=== PATIENT | male | born 1980 | race African-American/Black ===

== ENCOUNTER 2022-07-07 11:52 | Emergency (ER) | payer BC, OTHER ==
--- OUTSIDE RECORDS SUMMARY | 2022-07-07 11:55 | XMS REPORT | Continuity of Care Document ---
:1980 Author Organization [facility] t Address [address] [place] [address] Dr. [address]. [address] [place] [address] Care Team Providers Name Role Phone FILIPE DANIELLE Primary Care Physician Unavailable L_Adam Attending Clinician Unavailable Angela Medina Attending Clinician [phone] ARAM Attending Clinician Unavailable AYDE Attending Clinician Unavailable Silvina [place] Attending Clinician [phone] Paulina Sarmiento Attending Clinician PAULINA PAULSON Attending Clinician Unavailable L_Adam Admitting Clinician Unavailable ARAM Admitting Clinician Unavailable AYDE Admitting Clinician Unavailable Payers Payer Name Policy Type Policy Number Effective Date Expiration Date Jaquelin barnes [place] [id number] 2018 00:00:00 [place] Problems Condition Condition Condition Status Onset Resolution Last Treating Co mments Source Name Details Category Date Date Treatment Clinician Date Polyuria Polyuria Problem Active [facility] 07[facility] Abnormal Abnormal Problem Active [place] glucose Glucose 07-02 Communi level Level 00:00: Hospita l Clinics Essential Essential Problem Active [place] hypertensi Hypertensi 03-09 Co mmuni on on 00:00: ty [facility]osp[facility] Blood Blood Problem Active [place] glucose Glucose 03-06 Communi abnormal Abnormal 00:00: Hospita l Clinics Elevated Elevated Problem Active [place] fasting Fasting 03-06 Communi lipid Lipid 00:00: ty profile Profile 00 [facility] Sleep Sleep Problem Active [place] pattern Pattern 03-06 Communi disturbanc Disturbanc 00:00: ty e e 00 [facility] No known No known Disease Unive rs active active ity of problems problems [facility] Allergies, Adverse Reactions, Alerts Allergy Allergy Status Severity Reaction(s) Onset Inactive Treating Comm ents Source Name Type Date Date Clinician NO KNOWN Drug Active Univers ALLERGIE Class ity of S [facility] Social History Social Habit Start Date Stop Date Quantity Comments Source Exposure to Not sure [facility] SARS-CoV-2 [facility] [place] (event) Branch Alcohol intake 2021-10-25 2021-10-25 Current [facility] 00:00:00 00:00:00 non-drinker of [facility] alcohol [place] (finding) Tobacco use and 2018-10-13 2018-10-13 Never used Universit y of exposure 00:00:00 00:00:00 [facility] Sex Assigned At [birth year] Universit y of 00:00:00 00:00:00 [facility] Smoking Status Start Date Stop Date Source Never smoker [facility] Medications Ordered Filled Start Stop Current Ordering Indication Dosage Frequency Signature Comments Components Source Medication Medication Date Date Medication? Clinician (SIG) Name Name lisinopriL- Yes [id number] 1{tbl} Take 1 Univers hydrochloro 1-20 tablet by ity of thiazide 00:00: mouth [place] 20-12.5 mg 00 daily. Medical per tablet Branch amoxicillin 2021- No [id number] 500mg Take 1 Univers 500 mg 1-20 11-05 capsule by ity of capsule 00:00: 05:59 mouth 2 [place] 00 :00 (two) Medical times Branch daily for 10 days. lisinopril- Yes lisinopril Univers hydrochloro 1-08 20 ity of thiazide 14:26: mg-hydroch Nasir as 20-12.5 mg 15 lorothiazi Med ical per tablet de 12.5 mg Bra nch tablet Take 1 tablet every day by oral route. amitriptyli Yes amitriptyl Univers ne 25 mg 1-08 ine 25 mg ity of tablet 14:26: tablet [place] 15 Take 1 Medical tablet Branch every day by oral route as directed for 30 days. amLODIPine 2019-0 Yes 10mg Take 1 Unive rs 10 mg 1-08 tablet by ity of tablet 00:00: mouth [place] 00 daily. Medical Branch amitriptyli amitriptyli No amitriptyl [place] ne 25 mg ne 25 mg ine 25 mg Co mmuni tablet TAKE tablet TAKE tablet ty 1 TABLET BY 1 TABLET BY TAKE 1 Hospita MOUTH ONCE MOUTH ONCE TABLET BY l DAILY DAILY MOUTH ONCE C linics DIRECTED DIRECTED DAILY DIRECTED amlodipine amlodipine No 1 Q1D amlodipine [place] 10 mg 10 mg 10 mg Communi tablet Take tablet Take tablet ty 1 tablet 1 tablet Take 1 Hospi ta every day every day tablet l by oral by oral every day Clin ics route in route in by oral the evening the evening route in for 90 for 90 the days. days. evening for 90 days. lisinopril lisinopril No 1 Q1D lisinopril [place] 10 mg 10 mg 10 mg Communi tablet Take tablet Take tablet ty 1 tablet 1 tablet Take 1 Hospi ta every day every day tablet l by oral by oral every day Clin ics route. route. by oral route. amitriptyli amitriptyli No amitriptyl [place] ne 25 mg ne 25 mg ine 25 mg Co mmuni tablet TAKE tablet TAKE tablet ty 1 TABLET BY 1 TABLET BY TAKE 1 Hospita MOUTH ONCE MOUTH ONCE TABLET BY l DAILY DAILY MOUTH ONCE C linics DIRECTED DIRECTED DAILY DIRECTED amlodipine amlodipine No 1 Q1D amlodipine [place] 10 mg 10 mg 10 mg Communi tablet Take tablet Take tablet ty 1 tablet 1 tablet Take 1 Hospi ta every day every day tablet l by oral by oral every day Clin ics route in route in by oral the evening the evening route in for 90 for 90 the days. days. evening for 90 days. lisinopril lisinopril No 1 Q1D lisinopril [place] 10 mg 10 mg 10 mg Communi tablet Take tablet Take tablet ty 1 tablet 1 tablet Take 1 Hospi ta every day every day tablet l by oral by oral every day Clin ics route. route. by oral route. Vital Signs Vital Name Observation Time Observation Value Comments Source BP Diastolic 2022-07-02 00:00:00 113 mm[Hg] Nai Molina [facility] s Height 2022-07-02 00:00:00 74 [in_i] [facility] s BMI (Body Mass 2022-07-02 00:00:00 27.5 kg/m2 [facility] Index) [facility] s BP Systolic 2022-07-02 00:00:00 193 mm[Hg] [facility] s Body Weight 2022-07-02 00:00:00 3420.8 [oz_av] [facility] s Systolic blood 2021-10-26 01:56:00 200 mm[Hg] Univer sity [facility] Diastolic blood 2021-10-26 01:56:00 100 mm[Hg] [facility] rate 2021-10-26 01:56:00 103 /min [facility] Body temperature 2021-10-26 01:53:00 37.44 Marcy [facility] Respiratory rate 2021-10-26 01:53:00 18 /min [facility] Body height 2021-10-26 01:53:00 188 cm [facility] Body weight 2021-10-26 01:53:00 113.399 kg [facility] BMI 2021-10-26 01:53:00 32.10 kg/m2 [facility] Oxygen saturation in 2021-10-26 01:53:00 98 /min [facility] blood by [facility] Pulse oximetry Branch Procedures Procedure Date / Time Performed Performing Clinician Sourc e POCT MOLECULAR STREP 2021-10-26 01:51:00 Paulina Paulson [facility] Plan of Care Planned Activity Planned Date Details Comments Source Diagnostic Test 2022-07-02 urinalysis, [place] [facility] Pending 00:00:00 dipstick [code = [facility] urinalysis, dipstick] Diagnostic Test 2022-07-02 glucose, [place] [facility] Pending 00:00:00 fingerstick, blood [facility] [code = glucose, fingerstick, blood] Diagnostic Test 2022-07-02 HbA1c (hemoglobin [facility] Pending 00:00:00 A1c), blood [code Hospital linics = HbA1c (hemoglobin A1c), blood] Instructions [place] [facility] s Encounters Start End Encounter Admission Attending Care Care Encounter Source Date/Time Date/Time Type Type Clinicians Facility Department ID 2022-07-02 2022-07-02 Outpatient L_Adam [facility] [id number] [place] 00:00:00 00:00:00 927 Commun i ty [facility] 2022-07-02 2022-07-02 [facility] [place] [facility] [place] 00:00:00 00:00:00 Abel Medina APRN, MSN, [facility] ty [facility]: [address], CL[address], [place] [address] , Ph. 2022-05-08 2022-05-08 Outpatient L_Adam [facility] [id number] [place] 00:00:00 00:00:00 803 Commun i ty Hospita [facility] Clinics 2022-05-08 2022-05-08 Outpatient Angela Medina [facility] [id number] 00:00:00 00:00:00 [id number] 2022-05-06 2022-05-06 Outpatient L_Adam [facility] [id number] 220 [place] 00:00:00 00:00:00 801 Commun i ty Hospita [facility] Clinics 2022-04-19 2022-04-19 Outpatient L_Adam [facility] [id number] 220 [place] 10:22:00 10:22:00 715 Commun i ty Hospita l Clinics 2022-04-10 2022-04-10 Outpatient CHRETIEN_F [facility] [id number] [place] 12:34:00 12:34:00 706 Commun i ty Hospita [facility] Clinics 2022-04-10 2022-04-10 Outpatient Angela Medina [facility] [id number] 00:00:00 00:00:00 [id number] [facility] 2022-04-03 2022-04-03 Outpatient CHRETIEN_F [facility] [id number] [place] 03:24:00 03:24:00 629 Commun i ty Hospita [facility] Clinics 2022-04-01 2022-04-01 Outpatient SHASHI [facility] [id number] [place] 01:57:00 01:57:00 _L 627 Commun i ty Hospita [facility] Clinics 2022-04-01 2022-04-01 Outpatient Ofelia [facility] [id number] 00:00:00 00:00:00 Silvina [id number] 2022-04-01 2022-04-01 Outpatient Ofelia [facility] [id number] 00:00:00 00:00:00 Silvina [id number] 2021-10-25 2021-10-25 Urgent [facility] [id number] Univers 20:00:00 20:20:00 [facility] [id number] it y [facility] [id number] Nasir as SHANTELL?BLEA [id number] [address] MEDICAL OFFICE BUILDING 2021-10-25 2021-10-25 [facility] [id number] Univers 20:00:00 20:17:33 [facility] 2021-10-25 2021-10-25 Outpatient R [facility] [id number] Univers 20:00:00 20:00:00 [id number] [facility] 2020-06-07 2020-06-07 Outpatient SHASHI [facility] [id number] [place] 04:34:00 04:34:00 _L 623 Commun ty Hospita l Clinics Results Test Description Test Time Test Comments Results Result Comments Source Glucose [Mass/volume] in Capillary blood 2022-07-02 08:22:00 Test Item Value Reference Range Interpretation Comme nts Blood Glucose: mg/dl (test code = Blood Glucose: mg/dl) 600+ [facility] - Urine 2022-07-02 08:21:00 Test Item Value Reference Range Interpretation Comments Leukocytes (test code = Negative Leukocytes) Nitrite (test code = Nitrite) negative Urobilinogen (test code = .2 Urobilinogen) Protein (test code = Protein) Trace pH (test code = pH) 5.0 Blood (test code = Blood) Large Specific [place] (test code = 1.005 Specific [place]) Ketone (test code = Ketone) Large (160) Bilirubin (test code = Bilirubin) Negative Glucose (test code = Glucose) 2000+ Appearance (test code = Clear Appearance) Color (test code = Color) Pale Yellow [facility] [id number] 01:58:49 Test Item Value Reference Range Interpretation Comments POCT Molecular Strep (test code = Negative Negative 33655-9) Lab Interpretation (test code = Normal 30241-3) [facility]
[2022-07-07 12:43] LABS: Urine Blood Negative (Negative); Urine Glucose 3+ (Negative); Urine Protein Negative (Negative); Urine Specific Gravity <=1.005 (1.005-1.030); Urine pH 5.5 (5.0-7.0)
[2022-07-07] MEDS ORDERED: NA CHLORIDE 0.9% 1,000 ML ONE ×2 (12:44→15:40)
[2022-07-07] MEDS ORDERED: INSULIN -REGULAR HUMAN 50 UNIT/0.5 ML ML ONE (12:44)
[2022-07-07 12:54] LABS: Hematocrit 45.9 % (39.6-49.0); Lymphocytes % 37.9 % (15.3-44.8); MCV 81.8 fL (80-100); MPV 11.1 fL (7.6-11.3); RBC Red Blood Cell Count 5.61 M/uL (4.33-5.43)
[2022-07-07 13:14] LABS: Albumin 3.7 g/dL (3.4-5.0); Bilirubin Total 0.6 mg/dL (0.2-1.0); Protein, Total 7.3 g/dL (6.4-8.2)
[2022-07-07 14:28] LABS: Blood Gas Oxyhemoglobin 95.7 % (94-97)
[2022-07-07 17:28] LABS: Blood Morphology Comment NOT SEEN (NOT SEEN); Platelet Estimate ADEQ; White Blood Cell Scan OK (OK)
[2022-07-07 18:17] LABS: Potassium 4.2 mmol/L (3.5-5.1)
--- NOTE | 2022-07-07 18:33 | EDPHYS ---
Physician Documentation [facility] Name: Spencer Murray Age: 42 yrs Sex: Male : 1980 Arrival Date: 07/07/2022 Time: 11:57 Bed 18 Private MD: ED Physician Jose J Mello HPI: 07/07 18:31 This is a 42-year-old male with history of diabetes mellitus and hypertension the jmm presents emerged part with elevated blood glucose. Patient was seen at [place] [facility] and prescribed glipizide, metformin, and insulin. Patient did not fill his insulin prescription. Patient states having increased urination. Denies shortness of breath.. Historical: - Allergies: 12:24 No Known Allergies; vg1 - Home Meds: 12:24 lisinopril 20 mg Oral tab 1 tab once daily for Hypertension [Active]; amlodipine oral vg1 [Active]; Metformin Oral [Active]; Glipizide Oral [Active]; - PMHx: 12:24 Hypertension; Diabetes mellitus; vg1 - PSHx: 12:24 None; vg1 - Immunization history:: Client reports having NOT received the Covid vaccine. - Social history:: Smoking status: Patient denies any tobacco usage or history of. ROS: 18:31 Constitutional: Negative for fever, chills, and weight loss, Cardiovascular: Negative jmm for chest pain, palpitations, and edema, Respiratory: Negative for shortness of breath, cough, wheezing, and pleuritic chest pain. Exam: 18:32 Constitutional: This is a well developed, well nourished patient who is awake, alert, jmm and in no acute distress. Head/Face: atraumatic. Eyes: EOMI, no conjunctival erythema appreciated ENT: Moist Mucus Membranes Neck: Trachea midline, Supple Chest/axilla: Normal chest wall appearance and motion. Cardiovascular: Regular rate and rhythm. No edema appreciated Respiratory: Normal respirations, no respiratory distress appreciated Abdomen/GI: Non distended Back: Normal ROM Skin: General appearance color normal MS/ Extremity: Moves all extremities, no obvious deformities appreciated, no edema noted to the lower extremities Neuro: Awake and alert Psych: Behavior is normal, Mood is normal, Patient is cooperative and pleasant Vital Signs: 12:21 BP 143 / 94; Pulse 107; Resp 17; Temp 98.6(TE); Pulse Ox 96% on R/A; Weight 97.52 kg; vg1 Height 6 ft. 2 in. (187.96 cm); Pain 0/10; 12:55 BP 127 / 70; Pulse 112; Resp 18; Pulse Ox 95% ; eh3 14:00 BP 130 / 76; Pulse 88; Resp 14; Pulse Ox 94% on R/A; eh3 15:00 BP 116 / 73; Pulse 80; Resp 18; Pulse Ox 100% on R/A; eh3 16:00 BP 140 / 92; Pulse 91; Resp 17; Pulse Ox 95% on R/A; eh3 17:00 BP 140 / 83; Pulse 75; Resp 13; Pulse Ox 98% on R/A; eh3 18:00 BP 149 / 91; Pulse 80; Resp 16; Pulse Ox 97% on R/A; eh3 12:21 Body Mass Index 27.60 (97.52 kg, 187.96 cm) vg1 MDM: 12:33 Patient medically screened. [facility] 18:32 Data reviewed: vital signs, nurses notes. Counseling: I had a detailed discussion with abril the patient and/or guardian regarding: the historical points, exam findings, and any diagnostic results supporting the discharge/admit diagnosis, lab results, the need for outpatient follow up, to return to the emergency department if symptoms worsen or persist or if there are any questions or concerns that arise at home. Refusal of service: The patient/guardian displays adequate decision making capability and despite a detailed discussion of alternatives, benefits, risks, and consequences refuses: Admission to the hospital for further work-up and treatment. 07/07 12:32 Order name: Glucose, Ancillary Testing; Complete Time: 12:33 EDCT 07/07 12:36 Order name: CBC with Diff [facility] 07/07 12:36 Order name: CMP [facility] 07/07 12:36 Order name: Lipase [facility] 07/07 12:43 Order name: Urine Dipstick-Ancillary; Complete Time: 12:43 EDCT 07/07 12:56 Order name: CBC with Automated Diff; Complete Time: 17:34 EDCT 07/07 13:16 Order name: Comprehensive Metabolic Panel; Complete Time: 13:22 EDCT 07/07 13:16 Order name: Lipase; Complete Time: 13:22 EDCT 07/07 13:42 Order name: ABG [facility] 07/07 15:36 Order name: ABG Arterial Blood Gas; Complete Time: 15:41 EDMS 07/07 16:07 Order name: BMP: repeat after IVF [facility] 07/07 16:51 Order name: Glucose, Ancillary Testing; Complete Time: 16:58 EDMS 07/07 17:28 Order name: CBC Smear Scan; Complete [facility]: 17:34 [facility] 12:36 Order name: IV Saline Lock; Complete Time: 12:59 [facility] 07/07 12:36 Order name: Labs collected and sent; Complete Time: 12:59 [facility] 07/07 12:36 Order name: Urine Dipstick-Ancillary (obtain specimen); Complete Time: 12:55 [facility] 07/07 18:17 Order name: Basic Metabolic Panel; Complete Time: 18:19 EDMS Administered Medications: 12:55 Drug: Insulin Regular Human 10 units {Co-Signature: ld1 (Deann Jean RN).} Route: eh3 IVP; Site: left antecubital; 16:48 Follow up: Response: Blood sugar is lowered [facility] 12:59 Drug: NS 0.9% 1000 ml Route: IV; Rate: 1 bolus; Site: left antecubital; eh3 14:00 Follow up: IV Status: Completed infusion; IV Intake: 1000ml eh3 15:47 Drug: NS 0.9% 1000 ml Route: IV; Rate: 1 bolus; Site: left antecubital; eh3 18:00 Follow up: IV Status: Completed infusion; IV Intake: 1000ml eh3 Disposition Summary: 07/07/22 18:33 Discharge Ordered Location: Home [facility] Condition: Stable [facility] Diagnosis - Hyperglycemia, unspecified [facility] Followup: [facility] - With: Private Physician - When: 2 - 3 days - Reason: Recheck today's complaints, Continuance of care, Re-evaluation by your physician Discharge Instructions: - Discharge Summary Sheet [facility] - Hyperglycemia [facility] Forms: - Medication Reconciliation Form [facility] - Thank You Letter [facility] - Antibiotic Education [facility] - Prescription Opioid Use [facility] Prescriptions: - Levemir FlexTouch U-100 Insuln 100 unit/mL (3 mL) Subcutaneous insulin pen - inject 10 unit by SUBCUTANEOUS route once daily; 1 Device; Refills: 0, Product [facility] Selection Permitted Signatures: Dispatcher [employer] EDMS Jose J Mello MD MD cha Mickail, Joel, PA PA jmm Garcia, Victoria, RN RN vg1 Sandra Torres, TACHO RN eh3 Deann Jean RN ld1 Corrections: (The following items were deleted from the chart) 15:44 15:27 BASIC METABOLIC PANEL+[id number].LAB.BRZ ordered. EDMS EDMS
--- NOTE | 2022-07-07 18:33 | ER ---
Nurse's Notes [facility] Name: Spencer Murray Age: 42 yrs Sex: Male : 1980 Arrival Date: 07/07/2022 Time: 11:57 Bed 18 Private MD: Diagnosis: Hyperglycemia, unspecified Presentation: 07/07 12:21 Chief complaint: Patient states: BG at home was 555; triage stated 'HI'; pt stated when vg1 to [place] ED Friday07/02/22 and was prescribed Metformin and Glipizide for new onset of DM; denies NV or headache; states "I feel weak". Coronavirus screen: Vaccine status: Patient reports being unvaccinated. Client denies travel out of the [place] in the last 14 days. Ebola Screen: Patient negative for fever greater than or equal to 101.5 degrees Fahrenheit, and additional compatible Ebola Virus Disease symptoms Patient denies exposure to infectious person. Patient denies travel to an Ebola-affected area in the 21 days before illness onset. Initial Sepsis Screen: Does the patient meet any 2 criteria? No. Patient's initial sepsis screen is negative. Does the patient have a suspected source of infection? No. Patient's initial sepsis screen is negative. Risk Assessment: Do you want to hurt yourself or someone else? Patient reports no desire to harm self or others. Onset of symptoms was July 07, 2022. 12:21 Method Of Arrival: Ambulatory vg1 12:21 Acuity: JEROME 3 vg1 Triage Assessment: 12:24 General: Appears in no apparent distress. uncomfortable, Behavior is cooperative. Pain: vg1 Denies pain. Neuro: Level of Consciousness is awake, alert, obeys commands, Oriented to person, place, time, situation. Cardiovascular: Patient's skin is warm and dry. Respiratory: Airway is patent Respiratory effort is even, unlabored. Historical: - Allergies: 12:24 No Known Allergies; vg1 - Home Meds: 12:24 lisinopril 20 mg Oral tab 1 tab once daily for Hypertension [Active]; amlodipine oral vg1 [Active]; Metformin Oral [Active]; Glipizide Oral [Active]; - PMHx: 12:24 Hypertension; Diabetes mellitus; vg1 - PSHx: 12:24 None; vg1 - Immunization history:: Client reports having NOT received the Covid vaccine. - Social history:: Smoking status: Patient denies any tobacco usage or history of. Screenin:55 Abuse screen: Denies threats or abuse. Denies injuries from another. Nutritional eh3 screening: No deficits noted. Tuberculosis screening: No symptoms or risk factors identified. Fall Risk None identified. Assessment: 12:55 General: Appears in no apparent distress. comfortable, Behavior is calm, cooperative, eh3 appropriate for age. Pain: Denies pain. Neuro: Level of Consciousness is awake, alert, obeys commands, Oriented to person, place, time, situation. Cardiovascular: Capillary refill < 3 seconds Patient's skin is warm and dry. Respiratory: Airway is patent Respiratory effort is even, unlabored. GI: Abdomen is round non-distended. :. 14:00 Reassessment: Patient and/or family updated on plan of care and expected duration. Pain eh3 level reassessed. Patient is alert, oriented x 3, equal unlabored respirations, skin warm/dry/pink. 15:00 Reassessment: Patient and/or family updated on plan of care and expected duration. Pain eh3 level reassessed. Patient is alert, oriented x 3, equal unlabored respirations, skin warm/dry/pink. 16:00 Reassessment: Patient and/or family updated on plan of care and expected duration. Pain eh3 level reassessed. Patient is alert, oriented x 3, equal unlabored respirations, skin warm/dry/pink. 17:00 Reassessment: Patient and/or family updated on plan of care and expected duration. Pain eh3 level reassessed. Patient is alert, oriented x 3, equal unlabored respirations, skin warm/dry/pink. 18:00 Reassessment: Patient and/or family updated on plan of care and expected duration. Pain eh3 level reassessed. Patient is alert, oriented x 3, equal unlabored respirations, skin warm/dry/pink. Vital Signs: 12:21 BP 143 / 94; Pulse 107; Resp 17; Temp 98.6(TE); Pulse Ox 96% on R/A; Weight 97.52 kg; vg1 Height 6 ft. 2 in. (187.96 cm); Pain 0/10; 12:55 BP 127 / 70; Pulse 112; Resp 18; Pulse Ox 95% ; eh3 14:00 BP 130 / 76; Pulse 88; Resp 14; Pulse Ox 94% on R/A; eh3 15:00 BP 116 / 73; Pulse 80; Resp 18; Pulse Ox 100% on R/A; eh3 16:00 BP 140 / 92; Pulse 91; Resp 17; Pulse Ox 95% on R/A; eh3 17:00 BP 140 / 83; Pulse 75; Resp 13; Pulse Ox 98% on R/A; eh3 18:00 BP 149 / 91; Pulse 80; Resp 16; Pulse Ox 97% on R/A; eh3 12:21 Body Mass Index 27.60 (97.52 kg, 187.96 cm) vg1 ED Course: 11:57 Patient arrived in ED. am2 12:18 Prasad Swanson PA is PHCP. [facility] 12:18 Jose J Mello MD is Attending Physician. [facility] 12:24 Triage completed. vg1 12:24 Arm band placed on. vg1 12:35 Sandra Torres, TACHO is Primary Nurse. eh3 12:55 Patient has correct armband on for positive identification. Placed in gown. Bed in low eh3 position. Call light in reach. Side rails up X2. Client placed on continuous cardiac and pulse oximetry monitoring. NIBP monitoring applied. traffic monitor specialist on. Door closed. Noise minimized. Lights dimmed. Warm blanket given. 12:55 Inserted saline lock: 20 gauge in left antecubital area, using aseptic technique. Blood eh3 collected. 12:59 CBC with Diff Sent. eh3 12:59 CMP Sent. eh3 12:59 Lipase Sent. eh3 18:36 No provider procedures requiring assistance completed. eh3 18:52 IV discontinued, intact, bleeding controlled, No redness/swelling at site. Pressure eh3 dressing applied. Administered Medications: 12:55 Drug: Insulin Regular Human 10 units {Co-Signature: ld1 (Deann Jean RN).} Route: eh3 IVP; Site: left antecubital; 16:48 Follow up: Response: Blood sugar is lowered eh3 12:59 Drug: NS 0.9% 1000 ml Route: IV; Rate: 1 bolus; Site: left antecubital; eh3 14:00 Follow up: IV Status: Completed infusion; IV Intake: 1000ml eh3 15:47 Drug: NS 0.9% 1000 ml Route: IV; Rate: 1 bolus; Site: left antecubital; 3 18:00 Follow up: IV Status: Completed infusion; IV Intake: 1000ml 3 Medication: 12:55 VIS not applicable for this client. eh3 Intake: 14:00 IV: 1000ml; Total: 1000ml. eh3 18:00 IV: 1000ml; Total: 2000ml. eh3 Output: 18:34 Urine: 1000ml (Voided); Total: 1000ml. 3 Outcome: 18:33 Discharge ordered by . [facility] 18:51 Discharged to home ambulatory, with family. 3 18:51 Condition: stable 18:51 Discharge instructions given to patient, significant other, Instructed on discharge instructions, follow up and referral plans. medication usage, Demonstrated understanding of instructions, follow-up care, medications, Prescriptions given X 1. 18:52 Patient left the ED. 3 Signatures: Prasad Swanson PA PA jmm Moreno, Amanda am2 Theresa Powell RN RN 1 Sandra Torres RN RN 3 Deann Jean RN ld1 Corrections: (The following items were deleted from the chart) 12:26 12:21 Chief complaint: Patient states: BG at home was 555; triage stated 'HI'; pt vg1 stated when to [place] ED Friday07/02/22 and was prescribed Metformin and Glipizide; denies NV or headache; states "I feel weak" vg1 12:59 12:55 Pulse 112bpm; Resp 18bpm; Pulse Ox 95%; 3 3 16:48 15:36 BP 116 / 73; Pulse 80bpm; Resp 18bpm; Pulse Ox 100% RA; 3 eh3
[2022-07-07 19:00] VITALS: TEMP 98.6
[2022-07-07 19:08] VITALS: BP 149/91; O2SAT 97
== END 2022-07-07 18:52 | disposition home or self-care (01) ==
LOC: ER 11:52
DX: E11.65 Type 2 diabetes mellitus with hyperglycemia (principal); I10 Essential (primary) hypertension; Z79.899 Other long term (current) drug therapy; Z28.310 Unvaccinated for COVID-19
CPT/HCPCS: 96361; 85025; 80048; 36415; 82947 ×2; 81003; 83690; 80053; 82805; 96374; 99284; J1815; J7030 ×2